=== PATIENT | male | born 1965 | race Caucasian/White ===

== ENCOUNTER 2021-07-20 09:08 | Observation (INO) ==
[2021-07-20 09:43] LABS: Basophils # 0.1 K/mcL (0.0-0.2); Eosinophils # 0.1 K/mcL (0.0-0.6); Eosinophils % 1.7 %; Hematocrit 23.7 % (37.5-50.1); Immature Granulocytes % 0.2 % (0-4); Lymphocytes # 0.7 K/mcL (0.6-4.6); Lymphocytes % 14.2 %; Mean Corpuscular HGB Conc 23.6 g/dL (31.6-35.5); Mean Corpuscular Hemoglobin 14.9 pg (28.0-33.3); Mean Corpuscular Volume 63.2 fL (83.0-100.0); Mean Platelet Volume 9.3 fL (9.4-12.4); Monocytes # 0.5 K/mcL (0.0-1.3); Monocytes % 9.8 %; Neutrophils # 3.5 K/mcL (1.6-8.9); Platelet Count 373 K/mcL (140-400); Red Blood Count 3.75 M/mcL (4.19-5.50); Red Cell Distribution Width 23.1 % (11.5-14.5); Segmented Neutrophils % 73.1 %; White Blood Count 4.8 K/mcL (4.3-11.1)
[2021-07-20 09:46] LABS: Hemoglobin 5.6 g/dL (12.9-16.9)
[2021-07-20 09:50] LABS: INR 1.2; Prothrombin Time 13.6 Seconds (9.4-12.1)
[2021-07-20 09:53] LABS: Activated Partial Thrombo Time 31.6 Seconds (26.0-36.0)
[2021-07-20 09:58] LABS: BUN/Creatinine Ratio 15 (6-26); Blood Urea Nitrogen 15 mg/dL (6-20); Calcium 8.4 mg/dL (8.6-10.3); Carbon Dioxide 26 mEq/L (23-29); Chloride 109 mEq/L (98-107); Glucose 130 mg/dL (70-105); Osmolality,Calculated 293 (280-300); Potassium 4.4 mEq/L (3.5-5.1); Sodium 140 mEq/L (136-145); eGFR For African Americans > 60 (> 60); eGFR For Non-African Americans > 60 (> 60)
[2021-07-20] MEDS ORDERED: Naloxone 0.4 MG/ML INJ IVP PRN (10:41)
[2021-07-20 10:47] LABS: Anisocytosis 1+ (Not Present); Hypochromasia Present (Not Present); Macrocytosis Present (Not Present)
[2021-07-20 10:48] LABS: Microcytosis Present (Not Present)
[2021-07-20 10:49] LABS: Ovalocytes 1+ (Not Present); Poikilocytosis 1+ (Not Present)
[2021-07-20 10:51] LABS: Platelet Estimate Normal (Normal); Schistocytes 1+ (Not Present); Tear Drop Cells 1+ (Not Present)
[2021-07-20 14:54] LABS: Ferritin < 8 ng/mL (20-250); Iron < 10 mcg/dL (65-175); Transferrin 283 mg/dL (203-362)
[2021-07-20 15:22] VITALS: O2SAT 100
[2021-07-20 15:59] LABS: Hematocrit 27.1 % (37.5-50.1); Hemoglobin 6.8 g/dL (12.9-16.9)
[2021-07-20] MEDS ORDERED: 0.9 % Sodium Chloride 250 ML ONE (16:45)
[2021-07-20 17:04] VITALS: RESP 16
[2021-07-20 17:25] VITALS: TEMP 98.1
[2021-07-20 19:36] VITALS: BP 102/58; PULSE 63
[2021-07-20 21:05] LABS: Hematocrit 29.4 % (37.5-50.1); Hemoglobin 7.6 g/dL (12.9-16.9)
== END 2021-07-20 21:10 | disposition home or self-care (01) ==
LOC: INPPIK 09:08 → EMEROOPIK 09:08 → INPPIK 11:14
PROVIDERS: ADMIT Internal Medicine; ATTEND Internal Medicine